=== PATIENT | female | born 1990 | race Two or more races ===

== ENCOUNTER → 2019-03-14 | Outpatient (REF) | payer OTHER, MEDICAID ==
[2019-03-14 21:59] LABS: CHLAMYDIA DNA AMPLIFICATION NEGATIVE (NEGATIVE); GC DNA AMPLIFICATION NEGATIVE (NEGATIVE)
== END ==
LOC: M SFHCLERA 15:40
PROVIDERS: ATTEND Nurse Practitioner Family
DX: N89.8 Other specified noninflammatory disorders of vagina (principal)

== ENCOUNTER → 2019-03-14 | Outpatient (CLI) | payer OTHER, MEDICAID ==
--- NOTE | 2019-03-14 16:35 | REP ---
Two-view chest: 03/14/2019. Indication: Dyspnea. Comparison: None. Findings: The lungs are clear. No significant pleural effusion is present. There is no pneumothorax. Cardiac silhouette is within normal limits. Impression: No acute cardiopulmonary process. Electronically Signed by Alex Acevedo DO 03/14/2019 04:26 P
== END ==
LOC: M LRY 15:42
PROVIDERS: ATTEND Nurse Practitioner Family
DX: R06.09 Other forms of dyspnea (principal)

== ENCOUNTER → 2019-03-30 | Outpatient (REF) | payer OTHER, MEDICAID ==
[2019-03-30 21:57] LABS: CHLAMYDIA DNA AMPLIFICATION NEGATIVE (NEGATIVE); GC DNA AMPLIFICATION NEGATIVE (NEGATIVE)
== END ==
LOC: M SFHCLERA 15:41
PROVIDERS: ATTEND Physician Assistant
DX: N89.8 Other specified noninflammatory disorders of vagina (principal)

== ENCOUNTER → 2019-08-02 | Outpatient (REF) | payer OTHER, MEDICAID ==
[2019-08-02 19:12] LABS: CHLAMYDIA DNA AMPLIFICATION NEGATIVE (NEGATIVE); GC DNA AMPLIFICATION NEGATIVE (NEGATIVE)
== END ==
LOC: M SFHCWAGY 16:56
PROVIDERS: ATTEND Advanced Practice Midwife
DX: Z11.3 Encounter for screening for infections with a predominantly sexual mode of transmission (principal); Z12.4 Encounter for screening for malignant neoplasm of cervix

== ENCOUNTER 2020-07-29 06:15 | Day surgery (SDC) | payer OTHER ==
[~2020-07-29] VITALS: Ht 167.6 cm; Wt 95.3 kg
[2020-07-29] VITALS (8 sets, daily range): BP systolic 111–125; BP diastolic 62–72
[~2020-07-29 06:15] MED LIST: LR 1,000 ML IV ONE; NEXP1IMP SC
[2020-07-29] MEDS ORDERED: BACITRACIN PWD 50,000 UNITS VIAL As Ordered ONE (06:45)
[2020-07-29] MEDS ORDERED: BUPIVACAINE LIPOSOME/PF 1.3% 20ML VIAL (13.3MG/ML)(EXPAREL)(C9290 PER1MG) As Ordered ONE (06:45)
[2020-07-29] MEDS ORDERED: ceFAZolin SOD 2 GM in IV 1 EA IV ONE (07:00)
[2020-07-29] MEDS ORDERED: HEPARIN SOD (PORCINE) 5000UNITS/ML 1ML VIAL/SYRINGE SQ ONE (07:00)
[2020-07-29] MEDS ORDERED: fentaNYL 250 MCG/5 ML INJECTION (J3010) As Ordered ONE (07:21)
[2020-07-29] MEDS ORDERED: dexameTHASONE 4 MG/ML 1ML VIAL (J1100 PER 1MG) As Ordered ONE (07:21)
[2020-07-29] MEDS ORDERED: LIDOCAINE 2% 100MG/5ML SDV (FOR ANES.) As Ordered ONE (07:21)
[2020-07-29] MEDS ORDERED: ROCURONIUM BROMIDE 50 MG/5 ML VIAL As Ordered ONE ×2 (07:21→08:39)
[2020-07-29] MEDS ORDERED: propofoL 200 MG/20 ML VIAL As Ordered ONE (07:21)
[2020-07-29] MEDS ORDERED: ONDANSETRON 4MG/2ML VIAL As Ordered ONE (07:21)
[2020-07-29] MEDS ORDERED: MIDAZOLAM INJ 2MG/2ML VIAL (J2250 PER 1MG) As Ordered ONE (07:21)
[2020-07-29] MEDS ORDERED: EPINEPHrine INJ 1 MG/ML 1ML AMP As Ordered ONE (07:55)
[2020-07-29] MEDS ORDERED: LIDOCAINE 1% MDV 20ML VIAL As Ordered ONE (07:55)
[2020-07-29] MEDS ORDERED: HYDROmorphone HCL 2 MG/ML 1ML VIAL (J1170) As Ordered ONE (08:07)
[2020-07-29] MEDS ORDERED: ESMOLOL INJ 100MG/10ML VIAL As Ordered ONE (08:21)
[2020-07-29] MEDS ORDERED: SUGAMMADEX SODIUM 500 MG/5 ML VIAL (BRIDION) As Ordered ONE (08:32)
[2020-07-29] MEDS ORDERED: ACETAMINOPHEN 1000MG 100ML IV BTL (OFIRMEV) (J0131 PER 10MG) As Ordered ONE (08:32)
[2020-07-29] MEDS ORDERED: METOCLOPRAMIDE INJ 10MG/2ML VIAL (J2765 PER 1) As Ordered ONE (09:25)
[2020-07-29] MEDS ORDERED: PHENYLephrine 500MCG 5ML (100MCG/ML) SYRINGE As Ordered ONE (09:43)
--- NOTE | 2020-07-29 11:35 | POST-OPPD ---
Postoperative Procedure Note Date Of Procedure: Jul 29, 2020 PREOPERATIVE DIAGNOSIS: Bilateral breast hypertrophy POSTOPERATIVE DIAGNOSIS: same FINDINGS: Large breasts PROCEDURE: Bilateral breast reduction SURGEON: Dr Camejo ANESTHESIA: General SPECIMENS: Right breast 709 gm, Left breast 723 gm ESTIMATED BLOOD LOSS: 100 cc REPLACED: none DRAINS: 10 mm MAURA x 2 COMPLICATIONS: none POSTOPERATIVE CONDITION: stable RADHA CAMEJO DO Jul 29, 2020 11:35
[2020-07-29] MEDS: LR 1,000 ML IV SCH (11:36)
--- NOTE | 2020-07-29 11:36 | ROOPDOC ---
[facility] Report Of Operation Report of Operation DATE OF PROCEDURE: 07/29/20 PREOPERATIVE DIAGNOSIS: Bilateral breast hypertrophy POSTOPERATIVE DIAGNOSIS: same FINDINGS: Large breasts PROCEDURE: Bilateral breast reduction SURGEON: Dr Camejo ANESTHESIA: General SPECIMENS: Right breast 709 gm, Left breast 723 gm ESTIMATED BLOOD LOSS: 100 cc REPLACED: none DRAINS: 10 mm MAURA x 2 COMPLICATIONS: none POSTOPERATIVE CONDITION: stable DESCRIPTION OF PROCEDURE: This is a 30-year-old female who upper back and neck pain worsened by large breasts. She wears 40 DD bra. She is scheduled for bilat eral breast reduction. Risks, benefits, and alternatives were discussed with the patient in detail, and she is ready to proceed. The day of surgery, she was marked in the upright position and informed consent was obtained. She measured 32 cm from sternal notch to nipple on both sides, IMF at 21 cm bilaterally. She was brought into the operating room and placed in the supine position. Preoperative antibiotics and 5000 units heparin subcutaneous were given. Sequential pneumatic stocking were placed on the lower calves. General anesthesia was induced. She was prepped and draped in the usual sterile fashion. We started our procedure on the right side. Her nipple areolar complex was outlined 45 mm in diameter, and the patient was marked according superior medial pedicle. We started our incision by scoring the nipple areolar complex area, and then dissection was continued until the inferior lateral portion of the breast was resected. Hemostasis was obtained using electrocautery. The pedicle was de-epithelialized using Mack scissors, good perfusion to the nipple at all times. Wound was irrigated with Bacitracin solution. We used Exparel 6 cc for local anesthesia to infiltrate in the Pectoralis muscle as well as the breast tissue. Than pedicle was turned superior to its new location at 21 cm from sternal notch. The mound was re-created using conforming 0 Vicryl sutures. Pillars were closed with interrupted 3-0 Monocryl sutures. The vertical limb was 8 cm. Excess tissue inferiorly was measured and resected, creating the horizontal scar. Nipple area complex was brought into view through the new opening and sutured in place with 3-0 and 4-0 Monocryl sutures and a 5-0 plain. A 10 mm Baldev-Burns drain was placed through the lateral portion of the horizontal incision. 150 mL of tumescent solution infiltrated in the lateral chest. Vaser suction assisted lipectomy performed for 2 minutes, followed by regular liposuction. 150 mL of suction fluid was evacuated. Then we turned our attention to the left side. Mirror procedure was carried out. Again, resection was done according to superior-medial pedicle using electrocautery and PEEK cautery. Hemostasis was obtained. The pedicle was in good viable condition. Exparel was infiltrated through the pectoralis muscle and the breast tissue 6 cc. Than pedicle was turned superior to its new location at 21 cm from sternal notch. The mound was re-created using conforming 0 Vicryl sutures. Pillars were closed with interrupted 3-0 Monocryl sutures. The vertical limb was 8 cm. Excess tissue inferiorly was measured and resected, creating the horizontal scar. Nipple area complex was brought into view through the new opening and sutured in place with 3-0 and 4-0 Monocryl sutures and a 5-0 plain gut suture in interrupted fashion. A 10 mm Baldev-Burns drain was placed through the lateral portion of the horizontal incision. 150 mL of tumescent solution infiltrated in the lateral chest. Vaser suction assisted lipectomy performed for 2 minutes, followed by regular liposuction. 150 mL of suction f luid was evacuated. Good symmetry was achieved between right and left sides, lateral breast and chest area is symmetrical now. Remaining Exparel injected in the horizontal incision. Total Exparel use 20 cc. Resected tissue sent to pathology in two specimens right and left breast tissue. Right breast 709 grams, left breast 723 grams. Dressings were applied to vertical and horizontal incision: Prineo. Nipples areolar complex: Xeroform and a bulky dressing with a surgical bra. Patient was extubated in the operating room without difficulty and was transferred to the recovery room in stable condition. RADHA CAMEJO DO Jul 29, 2020 11:36
[2020-07-29] MEDS ORDERED: KETOROLAC TROMETHAMINE 10 MG TAB PO PRN (11:40)
[2020-07-29] MEDS ORDERED: ACETAMINOPHEN TAB 650MG DOSE (2X325MG) PO PRN (11:40)
[2020-07-29] MEDS ORDERED: ONDANSETRON 4MG/2ML VIAL IV PRN ×2 (11:40→12:00)
[2020-07-29] MEDS ORDERED: fentaNYL 100 MCG/2 ML INJECTION (J3010) IV PRN (12:00)
[2020-07-29] MEDS ORDERED: LR 1,000 ML IV SCH (12:00)
[2020-07-29] MEDS ORDERED: oxyCODONE 5MG TAB PO PRN (12:00)
[2020-07-29] MEDS: PERCOCET 5MG/325MG TAB PO PRN ×2 (14:21→22:26)
[2020-07-29] MEDS: ceFAZolin SOD 1 GM in D5W MINI-BAG PLUS 50 ML IV SCH ×2 (15:08→22:26)
[2020-07-30 02:00] VITALS: BP 116/72
[2020-07-30] MEDS: LR 1,000 ML IV SCH (05:47)
[2020-07-30] MEDS: ceFAZolin SOD 1 GM in D5W MINI-BAG PLUS 50 ML IV SCH (05:48)
[2020-07-30 06:00] VITALS: BP 106/58
[2020-07-30 10:00] VITALS: BP 131/74
--- NOTE | 2020-07-30 12:12 | IPNPDOC ---
Subjective General Date Seen: Jul 30, 2020 Subject Chief Complaint/History The patient is a 30-year-old female admitted with a reason for visit of Bilateral Breast Hypertrophy. S/p lateral breast reduction postop day 1. Doing well. Ambulating, tolerating regular diet. Current Medications Current Medications Current Medications Medications (Trade) Dose Ordered Sig/Katrin Route PRN Reason Start Time Stop Time Status Last Admin Dose Admin Acetaminophen (Tylenol Tab) 650 mg Q6H PRN PO MILD PAIN (PS 1-4) 07/29/20 11:40 Cefazolin Sodium 1 gm/Dextrose 50 ml @ 100 mls/hr Q8H IV 07/29/20 15:00 07/30/20 05:48 Fentanyl Citrate (Sublimaze) 25 mcg Q5MP PRN IV PAIN LEVEL 5-10 07/29/20 12:00 07/29/20 13:00 DC Ketorolac Tromethamine (ToRADol) 10 mg Q6HP PRN PO MODERATE PAIN (PS 5-7) 07/29/20 11:40 08/03/20 11:39 07/29/20 20:42 Lactated Ringer's 1,000 ml @ 75 mls/hr [id number] IV 07/29/20 11:36 07/30/20 05:47 Lactated Ringer's 1,000 ml @ 80 mls/hr [id number] IV 07/29/20 12:00 07/29/20 13:00 DC Ondansetron HCl (ZOFRAN INJection) 4 mg Q4H PRN IV NAUSEA OR VOMITING 07/29/20 11:40 Ondansetron HCl (ZOFRAN INJection) 4 mg Q4HP PRN IV NAUSEA OR VOMITING 07/29/20 12:00 07/29/20 13:00 DC Oxycodone HCl (Roxicodone, Oxyir) 5 mg ASDIRECTED PRN PO PAIN LEVEL 1-4 07/29/20 12:00 07/29/20 13:00 DC Oxycodone/ Acetaminophen (Percocet 5mg/ 325mg Tablet) 2 tab Q4HP PRN PO PAIN LEVEL 8-10 07/29/20 11:40 07/29/20 22:26 Allergies Coded Allergies: No Known Allergies (Unverified , 07/24/20) Objective Physical Examination Examination GENERAL APPEARANCE:Patient seen, laying in bed, awake, alert, and oriented. Comfortable, in no acute distress. SKIN: Warm and moist. BREAST: Right and left soft, non-tender incisions intact. MAURA drains: 58/35 cc/24 hr. NAC: Viable, warm, symmetrical, mild post-op ecchymosis, no expanding hematoma. LUNGS: Clear to auscultation bilaterally. No wheezing appreciated. HEART: No chest wall abnormalities. Regular rate and rhythm with no murmurs appreciated. ABDOMEN: Abdomen is soft, non-tender, non-distended. I EXTREMITIES: No edema identified. No calf tenderness. Vital Signs Vital Signs Date Time Temp Pulse Resp B/P (MAP) Pulse Ox O2 Delivery O2 Flow Rate FiO2 07/30/20 10:00 98.1 78 18 131/74 (93) 99 Room Air I&Os I&O- Last 24 Hours up to 6 AM 07/30/20 06:00 Intake Total 4105 ml Output Total 218 ml Balance 3887 ml Impression S/p bilateral breast reduction Doing well Stable for discharge Keep drains, monitor daily output. Bra support. Pain control, prescription for Percocet sent to the pharmacy. F/up plastic surgery. Plan / VTE VTE Prophylaxis Ordered?: Yes RADHA CAMEJO DO Jul 30, 2020 12:12
[2020-07-30] MEDS ORDERED: PERCOCET PO (12:15)
== END 2020-07-30 13:55 | disposition home or self-care (01) ==
LOC: M SDC 06:15 → M MS5PR 13:15 → M SDC 07-30 13:55
PROVIDERS: ATTEND Plastic Surgery Surgery of the Hand
DX: N62 Hypertrophy of breast (principal); J45.909 Unspecified asthma, uncomplicated
CPT/HCPCS: 19318; 88300; 88305; 96361; 96365; 96366; C9290; J0131; J0171; J0690; J1100; J1170; J1644; J2250; J2370; J2405; J2765; J3010